=== PATIENT | female | born 1970 | race Caucasian/White ===

== ENCOUNTER 2017-08-12 20:02 | Emergency (ER) | payer SELFPAY | END 2017-08-12 22:00 | disposition left against medical advice (07) | LOC: EMS 20:04 | DX: Z53.21 Procedure and treatment not carried out due to patient leaving prior to being seen by health care provider (principal) ==

== ENCOUNTER 2018-12-21 01:47 | Emergency (ER) | payer SELFPAY | END 2018-12-21 01:52 | disposition left against medical advice (07) | LOC: EMS 01:47 | DX: M25.539 Pain in unspecified wrist (principal); Z53.21 Procedure and treatment not carried out due to patient leaving prior to being seen by health care provider ==

== ENCOUNTER 2018-12-21 04:39 | Emergency (ER) | payer SELFPAY ==
[~2018-12-21] VITALS: Ht 157.5 cm; Wt 68.2 kg
[2018-12-21 04:57] VITALS: BP 165/105
== END 2018-12-21 05:00 | disposition left against medical advice (07) ==
LOC: EMS 04:39
DX: M25.531 Pain in right wrist (principal); Z53.21 Procedure and treatment not carried out due to patient leaving prior to being seen by health care provider

== ENCOUNTER 2018-12-21 17:08 | Emergency (ER) | payer OTHER ==
[~2018-12-21] VITALS: Ht 157.5 cm; Wt 68.2 kg
[2018-12-21 17:16] VITALS: BP 140/81
[2018-12-21] MEDS ORDERED: KETOROLAC TROMETHAMINE 30 MG/ML VIAL IM ONE (17:45)
== END 2018-12-21 17:55 | disposition home or self-care (01) ==
LOC: EMS 17:08
DX: M19.031 Primary osteoarthritis, right wrist (principal); F17.210 Nicotine dependence, cigarettes, uncomplicated
CPT/HCPCS: 96372; 99283; J1885